=== PATIENT | female | born 1950 | race Caucasian/White ===

== ENCOUNTER 2025-01-27 00:40 | Outpatient (CLI) | payer MEDICARE, SELFPAY ==
[2025-01-27 14:48] LABS: TSH (W/Ref FT4) 1.09 uIU/mL (0.55-4.78)
[2025-01-27 14:51] LABS: Anion Gap 8.5 mmol/L (3-11); BUN 23 mg/dL (9-23); CO2 34.5 mmol/L (20.0-31.0); Calcium 9.7 mg/dL (8.3-10.6); Chloride 103 mmol/L (98-107); Cholesterol 156 mg/dL (<200); Glucose 72 mg/dL (74-106); HDL Cholesterol 68 mg/dL (>or=50); Potassium 3.6 mmol/L (3.5-5.1); Sodium 146 mmol/L (136-145)
== END 2025-01-27 00:41 | disposition home or self-care (01) ==
LOC: LOS 00:40
PROVIDERS: PCP Nurse Practitioner Family; Visit Provider Nurse Practitioner Family
DX: Z13.1 Encounter for screening for diabetes mellitus (principal); E03.9 Hypothyroidism, unspecified; Z13.6 Encounter for screening for cardiovascular disorders
CPT/HCPCS: 36415; 80048; 80061; 84443

== ENCOUNTER 2025-02-01 02:01 | Outpatient (CLI) | payer MEDICARE, SELFPAY ==
[2025-02-01] MEDS: Levalbuterol HFA 15 GM INH 4 PUFF IH (09:35)
[2025-02-01] MEDS: Inhaler, Assist Device 1 EACH MC (09:35)
--- NOTE | 2025-02-08 13:20 | W.PFT ---
Date of service: 02/01/25 Time of Service: 08:04 Pulmonary Function Test Result Indications: Emphysema Impression 1. Good patient effort was noted. ATS standards for reproducibility were met. 2. Spirometry showed mild obstructive lung disease with an FEV1 of 98% (1.82 L) 3. Following the administration of a bronchodilator there was not a significant response 4. TLC was normal. No evidence of restrictive lung disease 5. DLCO was normal at 90% predicted
== END 2025-02-01 02:02 | disposition home or self-care (01) ==
LOC: RT 02:01
PROVIDERS: PCP Nurse Practitioner Family; Visit Provider Nurse Practitioner Family
DX: J43.9 Emphysema, unspecified (principal); J44.89 Other specified chronic obstructive pulmonary disease
CPT/HCPCS: 94060; 94726; 94729